=== PATIENT | female | born 1990 | race Caucasian/White ===

== ENCOUNTER 2017-12-11 19:07 | Emergency (ER) | payer MEDICAID, OTHER ==
[2017-12-11 19:35] VITALS: BP 120/80; PULSE 69; RESP 16; TEMP 98.2; O2SAT 100
[2017-12-11] MEDS ORDERED: cefTRIAXone (Rocephin) 1 gm Inj IM STA (20:36)
--- NOTE | 2017-12-11 20:42 | ED PDOC ---
HPI: Skin/Bite Injury Time Seen by Provider: 12/11/17 19:28 Chief Complaint (Nursing): Finger,Hand,&Wrist Chief Complaint (Provider): Pain/infection at the right wrist, tattoo site History Per: Patient History/Exam Limitations: no limitations Onset/Duration Of Symptoms: Days Current Symptoms Are (Timing): Still Present Additional Complaint(s): PT got tattos 1 week ago and noticed redness and drainage from tattoo. No fever/ chills. Localized pain. Past Medical History Reviewed: Historical Data, Nursing Documentation, Vital Signs Vital Signs: Last Vital Signs Temp 98.2 F 12/11/17 19:34 Pulse 69 12/11/17 19:34 Resp 16 12/11/17 19:34 BP 120/80 12/11/17 19:34 Pulse Ox 100 12/11/17 19:34 - Medical History PMH: No Chronic Diseases - Surgical History Surgical History: No Surg Hx - Family History Family History: States: No Known Family Hx - Living Arrangements Living Arrangements: With Family - Social History Current smoker - smoking cessation education provided: No - Home Medications Home Medications: Ambulatory Orders Medication Instructions Recorded Famotidine [Pepcid] 20 mg PO BID #20 tab 09/26/14 Amoxicillin/Clavulanate [Augmentin 1 tab PO BID #20 tab 12/11/17 875 MG-125 MG] - Allergies Allergies/Adverse Reactions: Allergies Allergy/AdvReac Type Severity Reaction Status Date / Time No Known Allergies Allergy Verified 07/16/14 19:25 Review of Systems ROS Statement: Except As Marked, All Systems Reviewed And Found Negative Constitutional: Negative for: Fever Skin: Positive for: Other Physical Exam - Reviewed Nursing Documentation Reviewed: Yes Vital Signs Reviewed: Yes - Physical Exam Appears: Positive for: Well, Non-toxic, No Acute Distress Head Exam: Positive for: ATRAUMATIC, NORMAL INSPECTION, NORMOCEPHALIC Skin: Positive for: Warm. Negative for: Normal Color ((+) erythema around the tattoo on the right wrist with scabbing and small section of drainage ) Eye Exam: Positive for: Normal appearance ENT: Positive for: Normal ENT Inspection Neck: Positive for: Normal, Painless ROM Respiratory: Negative for: Accessory Muscle Use, Respiratory Distress Back: Positive for: Normal Inspection Extremity: Positive for: Normal ROM Neurologic/Psych: Positive for: Alert, Oriented - ECG O2 Sat by Pulse Oximetry: 100 Disposition - Clinical Impression Clinical Impression: Skin infection - Patient ED Disposition Is Patient to be Admitted: No Counseled Patient/Family Regarding: Diagnosis, Need For Followup, Rx Given - Disposition Disposition: Routine/Home Disposition Time: 20:37 Condition: GOOD Prescriptions: Amoxicillin/Clavulanate [Augmentin 875 MG-125 MG] 1 tab PO BID #20 tab Instructions: Laceration Infection
== END 2017-12-12 00:40 | disposition home or self-care (01) ==
LOC: H.ER 19:07
DX: L08.9 Local infection of the skin and subcutaneous tissue, unspecified (principal)
CPT/HCPCS: 96372; 99281; J0696